=== PATIENT | male | born 1995 | race Two or more races ===

== ENCOUNTER 2020-04-30 22:14 | Emergency (ER) | payer MEDICAID ==
[~2020-04-30] VITALS: Ht 172.7 cm; Wt 61.4 kg
[2020-04-30 22:20] VITALS: BP 95/75
[2020-04-30 23:02] LABS: BASOPHILS # (AUTO) 0.1 X10'3 (0-0.2); BASOPHILS % (AUTO) 0.4 % (0-1); EOSINOPHILS # (AUTO) 0.1 X10'3 (0-0.9); EOSINOPHILS % (AUTO) 0.4 % (0-6); HEMATOCRIT 46.3 % (42.0-52.0); HEMOGLOBIN 15.8 g/dl (14.0-17.9); LYMPHOCYTES # (AUTO) 2.9 X10'3 (1.1-4.8); LYMPHOCYTES % (AUTO) 24.2 % (21-51); MEAN CORPUSCULAR HEMOGLOBIN 29.8 PG (27.0-31.0); MEAN CORPUSCULAR VOLUME 87.6 FL (78-98); MEAN PLATELET VOLUME 8.6 FL (7.4-10.4); MONOCYTES # (AUTO) 0.7 X10'3 (0-0.9); MONOCYTES % (AUTO) 6.2 % (2-12); NEUTROPHILS # (AUTO) 8.2 X10'3 (1.8-7.7); NEUTROPHILS % (AUTO) 68.8 % (42-75); PLATELET COUNT 228 X10'3 (140-440); RED BLOOD COUNT 5.29 X10'6 (4.70-6.10); RED CELL DISTRIBUTION WIDTH 12.4 % (11.5-14.5); WHITE BLOOD COUNT 11.9 X10'3 (4.5-11.0)
--- NOTE | 2020-04-30 23:02 | NUR ---
JAIDEN ([facility] [place] [facility] [place] CALLED [phone].
[2020-04-30 23:17] LABS: ALANINE AMINOTRANSFERASE 18 U/L (12-78); ALBUMIN 4.8 G/DL (3.4-5.0); ALBUMIN/GLOBULIN RATIO 1.5 (1.1-1.5); ALKALINE PHOSPHATASE 73 IU/L (46-116); ANION GAP 13 (8-16); ASPARTATE AMINO TRANSFERASE 19 U/L (10-37); BILIRUBIN,TOTAL 0.5 MG/DL (0.1-1.0); BLOOD UREA NITROGEN 21 MG/DL (7-18); BUN/CREATININE RATIO 20.8 (5.4-32.0); CALCIUM 9.8 MG/DL (8.5-10.1); CHLORIDE 103 MMOL/L (99-107); CREATININE 1.01 MG/DL (0.60-1.10); GLUCOSE 101 MG/DL (70-104); POTASSIUM 3.4 MMOL/L (3.5-5.1); SODIUM 139 MMOL/L (135-145); TOTAL CARBON DIOXIDE 23.3 MMOL/L (24-32); TOTAL PROTEIN 7.9 G/DL (6.4-8.2); eGFR > 90 ML/MIN
[2020-04-30 23:18] LABS: ACETAMINOPHEN < 2.0 UG/ML (10-30); ETHANOL < 0.010 GM/DL (0.0-0.010)
[2020-05-01] MEDS ORDERED: diphenhydrAMINE 50 mg/ml inj IM ONE (01:00)
[2020-05-01] MEDS ORDERED: LORazepam 2 mg/ml vial IM ONE (01:00)
[2020-05-01] MEDS ORDERED: haloperidol lactate 5mg/ml inj IM ONE (01:00)
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
--- NOTE | 2020-05-01 01:18 | NUR ---
PATIENT IN BED EYES OPEN RR EVEN UN LABORED NO OBSERVABLE S/S OF ACUTE STRESS AT THIS TIME WILL CONTINUE TO MONITOR
[2020-05-01 01:22] LABS: URINE AMPHETAMINE SCREEN NEGATIVE (Neg); URINE BARBITUATE SCREEN NEGATIVE (Neg); URINE BENZODIAZEPINES SCREEN NEGATIVE (Neg); URINE CANNABINOID SCREEN NEGATIVE (Neg); URINE COCAINE SCREEN NEGATIVE (Neg); URINE METHADONE SCREEN NEGATIVE (Neg); URINE OPIATE SCREEN NEGATIVE (Neg); URINE PHENCYCLIDINE SCREEN NEGATIVE (Neg)
--- NOTE | 2020-05-01 03:10 | NUR ---
PATIENT IN BED EYES CLOSED RR EVEN UN LABORED NO OBSERVABLE S/S OF ACUTE STRESS AT THIS TIME WILL CONTINUE TO MONITOR
--- NOTE | 2020-05-01 04:24 | NUR ---
PATIENT IN BED SUPINE EYES CLOSED RR EVEN UN LABORED NO OBSERVABLE S/S OF ACUTE STRESS AT THIS TIME WILL CONTINUE TO MONITOR
--- NOTE | 2020-05-01 05:26 | NUR ---
PATIENT IN BED EYES CLOSED RR EVEN UN LABORED NO OBSERVABLE S/S OF ACUTE STRESS AT THIS TIME WILL CONTINUE TO MONITOR
--- NOTE | 2020-05-01 07:24 | NUR ---
Pt resting on his L side. Spoke to [facility] office; requesting second page of [phone] to be faxed to them.
--- NOTE | 2020-05-01 07:53 | NUR ---
Pt states that it is okay to speak with his mother regarding his care here in the ED.
--- NOTE | 2020-05-01 08:30 | NUR ---
Pt sitting up in gurney, eating breakfast. Appears in no acute distress.
--- NOTE | 2020-05-01 09:00 | NUR ---
[facility] at bedside speaking with pt
--- NOTE | 2020-05-01 10:04 | NUR ---
REPORT FROM EMIR HUGHES. [facility] NO COMPLAINTS AT THIS TIME. RESTING IN BED.
[2020-05-01] MEDS ORDERED: RISP3TAB3 PO (12:20)
[2020-05-01] MEDS ORDERED: TRAZ-251 PO (12:20)
[2020-05-01] MEDS ORDERED: LORA-269 PO (12:20)
[2020-05-01] MEDS ORDERED: RISP2TAB3 PO (12:20)
--- NOTE | 2020-05-01 12:22 | NUR ---
JAIDEN LILLY, CONTACT NUMBERS: [phone] (HOME) AND/OR [phone] (CELL PHONE)
[2020-05-01] MEDS ORDERED: LORazepam 1 MG tablet PO ONE (13:25)
--- NOTE | 2020-05-01 13:28 | NUR ---
TC TO MOTHER, JAIDEN TO COME FOR DC TRANSPORATION. JAIDEN STATES SHE WILL BE HERE IN 15-20 MINUTES.
== END 2020-05-01 13:51 | disposition home or self-care (01) ==
LOC: ER 22:14
DX: S61.212A Laceration without foreign body of right middle finger without damage to nail, initial encounter (principal); F29 Unspecified psychosis not due to a substance or known physiological condition; R11.2 Nausea with vomiting, unspecified; F41.9 Anxiety disorder, unspecified; F31.9 Bipolar disorder, unspecified; F20.9 Schizophrenia, unspecified; W25.XXXA Contact with sharp glass, initial encounter; Y93.89 Activity, other specified; Y92.89 Other specified places as the place of occurrence of the external cause; Y99.8 Other external cause status
CPT/HCPCS: 12001; 36415; 73130; 80053; 80305; 80320; 80329; 84443; 85025; 96372; 99285; J1200; J1630; J2060